=== PATIENT | male | born 1960 | race Caucasian/White ===

== ENCOUNTER 2022-08-22 17:45 | Inpatient (IN) | payer OTHER, BC ==
[~2022-08-22] VITALS: Ht 165.1 cm; Wt 58.1 kg
[~2022-08-22 17:45] MED LIST: KETOROLAC TROMETHAMINE 30 MG VIAL IVP ONE; NS 1000 ML IV.SOLN IV ONE; NS IRRIG SOLN 1000 ML IR ONE; ONDANSETRON HCL 4 MG/2 ML VIAL IVP ONE; SEVOFLURANE 15 MIN GAS INH ONE
[2022-08-22 17:50] VITALS: BP_SYST 104
[2022-08-22] MEDS ORDERED: NACL 0.9% 1,000 ML IV ONE (19:15)
[2022-08-22] MEDS ORDERED: PIPERACILLIN/TAZO 3.375 GM in NS 50 ML IV ONE (19:15)
[2022-08-22] MEDS ORDERED: VANCOMYCIN HCL 1,000 MG in NS 250 ML IV ONE (19:15)
[2022-08-22 19:42] LABS: BASOPHILS # (AUTO) 0.1 K/uL (0.0-0.2); BASOPHILS % (AUTO) 0.5 % (0.0-2.0); EOSINOPHILS # (AUTO) 0.1 K/uL (0.0-0.4); EOSINOPHILS % (AUTO) 0.3 % (0.0-4.0); HEMOGLOBIN 12.5 g/dL (14.0-18.0); LYMPHOCYTES % (AUTO) 9.6 % (20.5-51.5); MEAN CORPUSCULAR HEMOGLOBIN 30 pg (27-31); MEAN CORPUSCULAR HGB CONC 34 % (32-36); MEAN CORPUSCULAR VOLUME 88 fL (79.0-98.0); MONOCYTES # (AUTO) 1.7 K/uL (0.0-1.0); MONOCYTES % (AUTO) 8.3 % (1.7-9.3); NEUTROPHILS # (AUTO) 16.7 K/uL (1.8-7.7); NEUTROPHILS % (AUTO) 81.3 % (40.0-70.0); PLATELET COUNT (AUTO) 385 K/uL (130-430); RED BLOOD CELL COUNT(AUTO) 4.19 MIL/uL (4.2-6.2); RED CELL DISTRIBUTION WIDTH 13.9 % (9.0-15.0); WHITE BLOOD COUNT (AUTO) 20.6 K/uL (4.8-10.8)
[2022-08-22] MEDS ORDERED: VANCOMYCIN HCL 1000 MG/VIAL IV ONE (19:53)
[2022-08-22] MEDS ORDERED: PIPERACILLIN/TAZOBACTAM 3.375 GM/VIAL (ZOSYN) IV ONE ×2 (19:53→22:53)
[2022-08-22 19:59] LABS: CALCIUM 8.9 mg/dL (8.4-11.0); CREATININE 0.78 mg/dL (0.55-1.30)
[2022-08-22] MEDS ORDERED: CLINDAMYCIN 900 MG in D5W 100 ML IV ONE (20:00)
[2022-08-22 20:04] LABS: INR 1.1 (0.80-1.20); PROTHROMBIN TIME 11.9 SECS (9.5-12.5)
[2022-08-22 20:11] LABS: ALBUMIN 3.1 g/dL (3.4-4.8); C-REACTIVE PROTEIN QUANT 17.8 mg/dL (0-0.5); TOTAL BILIRUBIN 0.7 mg/dL (0.0-1.0)
[2022-08-22 20:25] LABS: ERYTHROCYTE SEDIMENTATION RATE 77 MM/HR (0-15)
[2022-08-22] MEDS ORDERED: DIPHENHYDRAMINE HCL 50 MG CAPSULE PO ONE (20:45)
[2022-08-22] MEDS ORDERED: D5/0.45 NS 1,000 ML IV ONE (21:00)
[2022-08-22] MEDS ORDERED: MORPHINE 2 MG/ML INJ. SYRINGE IVP PRN ×2 (21:00)
[2022-08-22 21:21] LABS: BILIRUBIN,URINE NEGATIVE (NEGATIVE); BLOOD, URINE 1+ (NEGATIVE); CLARITY/URINE CLEAR (CLEAR); COLOR,URINE YELLOW (YELLOW); GLUCOSE,URINE NEGATIVE (NEGATIVE); KETONES,URINE NEGATIVE (NEGATIVE); LEUKOCYTE ESTERASE ,URINE NEGATIVE (NEGATIVE); NITRITE, URINE NEGATIVE (NEGATIVE); PROTEIN URINE NEGATIVE (NEGATIVE)
[2022-08-22 21:36] LABS: BACTERIA,URINE FEW /HPF (None Seen); MUCUS,URINE None Seen /LPF (None Seen); WBC,URINE 0-3 /HPF (0-3)
[2022-08-22] MEDS ORDERED: CLINDAMYCIN 600 mg/50mL D5W 50 ML IV ONE (22:53)
[2022-08-22] MEDS ORDERED: CLINDAMYCIN 900 mg/50mL D5W 50 ML IV ONE (23:16)
[2022-08-22 23:33] VITALS: BP_SYST 113
[2022-08-23] VITALS: BP_SYST 115
[2022-08-23] MEDS ORDERED: NACL 0.9% 1,000 ML IV ONE
[2022-08-23] MEDS: PIPERACILLIN/TAZO 3.375 GM in NS 50 ML IV SCH ×3 (05:34→22:19)
[2022-08-23] MEDS: CLINDAMYCIN 600 MG in D5W 50 ML IV SCH ×3 (06:58→17:20)
[2022-08-23 07:28] VITALS: BP_SYST 91
[2022-08-23 11:29] VITALS: BP_SYST 149
[2022-08-23] MEDS: VANCOMYCIN HCL 750 MG in NS 250 ML IV SCH ×2 (12:25→23:43)
[2022-08-23 15:27] VITALS: BP_SYST 94
[2022-08-23] MEDS ORDERED: fentaNYL CITRATE/PF 100 MCG/2 ML AMP IVP PRN (18:30)
[2022-08-23] MEDS ORDERED: ONDANSETRON HCL 4 MG/2 ML VIAL IVP PRN (18:30)
[2022-08-23] MEDS ORDERED: METOCLOPRAMIDE HCL 10 MG/2 ML VIAL IVP PRN (18:30)
[2022-08-23] MEDS ORDERED: BUPIVACAINE /PF 0.5% 30 ML VIAL ONE (19:10)
[2022-08-23] MEDS ORDERED: CLINDAMYCIN PHOSPHATE 600 MG/4 ML VIAL ONE (19:10)
[2022-08-23] MEDS ORDERED: fentaNYL CITRATE/PF 100 MCG/2 ML AMP ONE ×2 (19:10→19:35)
[2022-08-23] MEDS ORDERED: LIDOCAINE/EPI 1% 1:100000 20 ML VIAL ONE (19:10)
[2022-08-23] MEDS ORDERED: LR 1,000 ML IV.SOLN IV ONE (19:10)
[2022-08-23] MEDS ORDERED: PROPOFOL 200MG/ 20ML VIAL (DIPRIVAN) IV ONE (19:10)
[2022-08-23] MEDS ORDERED: SEVOFLURANE 15 MIN GAS INH ONE (19:10)
[2022-08-23] MEDS ORDERED: NS IRRIG SOLN 1000 ML IR ONE (19:10)
[2022-08-23] MEDS: fentaNYL CITRATE/PF 100 MCG/2 ML AMP IVP PRN ×2 (19:42→19:54)
[2022-08-23 21:00] VITALS: BP_SYST 102
[2022-08-23] MEDS: CEFEPIME 1 GM in D5W 50 ML IV SCH (21:26)
[2022-08-23 23:00] VITALS: BP_SYST 100
[2022-08-24] VITALS (7 sets, daily range): BP systolic 91–113
[2022-08-24] MEDS: CLINDAMYCIN 600 MG in D5W 50 ML IV SCH ×4 (01:41→19:03)
[2022-08-24] MEDS: PIPERACILLIN/TAZO 3.375 GM in NS 50 ML IV SCH ×3 (06:29→22:15)
[2022-08-24 07:24] LABS: BASOPHILS # (AUTO) 0.1 K/uL (0.0-0.2); EOSINOPHILS # (AUTO) 0.2 K/uL (0.0-0.4); EOSINOPHILS % (AUTO) 2.2 % (0.0-4.0); HEMATOCRIT 32.8 % (36-54); HEMOGLOBIN 11.3 g/dL (14.0-18.0); LYMPHOCYTES # (AUTO) 1.3 K/uL (1.0-5.5); LYMPHOCYTES % (AUTO) 12.3 % (20.5-51.5); MEAN CORPUSCULAR HEMOGLOBIN 30 pg (27-31); MEAN CORPUSCULAR HGB CONC 34 % (32-36); MEAN CORPUSCULAR VOLUME 88 fL (79.0-98.0); MONOCYTES # (AUTO) 1.3 K/uL (0.0-1.0); MONOCYTES % (AUTO) 12.3 % (1.7-9.3); NEUTROPHILS # (AUTO) 7.5 K/uL (1.8-7.7); NEUTROPHILS % (AUTO) 72.2 % (40.0-70.0); PLATELET COUNT (AUTO) 379 K/uL (130-430); RED BLOOD CELL COUNT(AUTO) 3.72 MIL/uL (4.2-6.2); RED CELL DISTRIBUTION WIDTH 13.9 % (9.0-15.0); WHITE BLOOD COUNT (AUTO) 10.4 K/uL (4.8-10.8)
[2022-08-24] MEDS: CEFEPIME 1 GM in D5W 50 ML IV SCH ×2 (08:06→22:12)
[2022-08-24 08:15] LABS: CALCIUM 7.7 mg/dL (8.4-11.0); CREATININE 0.69 mg/dL (0.55-1.30)
[2022-08-24] MEDS: LACTOBACILLUS RHAMNOSUS GG 1 CAP CAPSULE PO SCH ×2 (08:52→22:12)
[2022-08-24] MEDS: VANCOMYCIN HCL 750 MG in NS 250 ML IV SCH ×2 (11:15→22:16)
[2022-08-25] VITALS: BP_SYST 112
[2022-08-25] MEDS: CLINDAMYCIN 600 MG in D5W 50 ML IV SCH ×5 (00:06→23:51)
[2022-08-25] MEDS: PIPERACILLIN/TAZO 3.375 GM in NS 50 ML IV SCH ×3 (06:32→22:32)
[2022-08-25 08:15] VITALS: BP_SYST 113
[2022-08-25] MEDS: LACTOBACILLUS RHAMNOSUS GG 1 CAP CAPSULE PO SCH ×2 (09:00→22:31)
[2022-08-25] MEDS: CEFEPIME 1 GM in D5W 50 ML IV SCH (09:01)
[2022-08-25] MEDS: VANCOMYCIN HCL 750 MG in NS 250 ML IV SCH (10:58)
[2022-08-25 12:34] VITALS: BP_SYST 125
[2022-08-25 16:00] VITALS: BP_SYST 123
[2022-08-25 20:10] VITALS: BP_SYST 124
[2022-08-25] MEDS: VANCOMYCIN HCL 1,000 MG in NS 250 ML IV SCH (22:32)
[2022-08-25] MEDS: TEMAZEPAM 15 MG CAPSULE PO PRN (22:52)
[2022-08-26] VITALS: BP_SYST 122
[2022-08-26] MEDS: PIPERACILLIN/TAZO 3.375 GM in NS 50 ML IV SCH ×3 (05:34→21:13)
[2022-08-26] MEDS: CLINDAMYCIN 600 MG in D5W 50 ML IV SCH ×3 (05:46→17:15)
[2022-08-26 08:00] VITALS: BP_SYST 101
[2022-08-26] MEDS: LACTOBACILLUS RHAMNOSUS GG 1 CAP CAPSULE PO SCH ×2 (09:42→21:12)
[2022-08-26] MEDS: VANCOMYCIN HCL 1,000 MG in NS 250 ML IV SCH ×2 (11:24→23:35)
[2022-08-26 12:00] VITALS: BP_SYST 108
[2022-08-26 17:00] VITALS: BP_SYST 119
[2022-08-26 20:00] VITALS: BP_SYST 115
[2022-08-26] MEDS: TEMAZEPAM 15 MG CAPSULE PO PRN (21:12)
[2022-08-26] MEDS: ACETAMINOPHEN 325 MG TABLET PO PRN (22:07)
[2022-08-27] VITALS: BP_SYST 110
[2022-08-27] MEDS: CLINDAMYCIN 600 MG in D5W 50 ML IV SCH ×4 (01:48→18:16)
[2022-08-27] MEDS: PIPERACILLIN/TAZO 3.375 GM in NS 50 ML IV SCH ×3 (07:00→21:46)
[2022-08-27 08:00] VITALS: BP_SYST 127
[2022-08-27] MEDS: LACTOBACILLUS RHAMNOSUS GG 1 CAP CAPSULE PO SCH ×2 (09:00→21:46)
[2022-08-27] MEDS ORDERED: METOCLOPRAMIDE HCL 10 MG/2 ML VIAL IVP PRN (09:30)
[2022-08-27] MEDS ORDERED: MEPERIDINE HCL/PF 25 MG/ML DISP.SYRIN IVP PRN (09:30)
[2022-08-27] MEDS ORDERED: HYDROmorphone 1 MG/ML INJ. CARTRIDGE IVP PRN (09:30)
[2022-08-27] MEDS ORDERED: KETOROLAC TROMETHAMINE 30 MG VIAL IVP PRN (09:30)
[2022-08-27] MEDS ORDERED: NALOXONE HCL 0.4 MG/ML AMP (NARCAN) IVP PRN (09:30)
[2022-08-27 12:21] VITALS: BP_SYST 125
[2022-08-27] MEDS: VANCOMYCIN HCL 1,000 MG in NS 250 ML IV SCH ×2 (12:25→22:55)
[2022-08-27 13:22] LABS: BASOPHILS # (AUTO) 0.1 K/uL (0.0-0.2); BASOPHILS % (AUTO) 0.7 % (0.0-2.0); EOSINOPHILS # (AUTO) 0.3 K/uL (0.0-0.4); EOSINOPHILS % (AUTO) 3.7 % (0.0-4.0); HEMATOCRIT 36.1 % (36-54); HEMOGLOBIN 12.2 g/dL (14.0-18.0); LYMPHOCYTES # (AUTO) 1.6 K/uL (1.0-5.5); LYMPHOCYTES % (AUTO) 21.1 % (20.5-51.5); MEAN CORPUSCULAR HEMOGLOBIN 30 pg (27-31); MEAN CORPUSCULAR HGB CONC 34 % (32-36); MEAN CORPUSCULAR VOLUME 89 fL (79.0-98.0); MONOCYTES # (AUTO) 0.6 K/uL (0.0-1.0); MONOCYTES % (AUTO) 8.2 % (1.7-9.3); NEUTROPHILS # (AUTO) 5.2 K/uL (1.8-7.7); NEUTROPHILS % (AUTO) 66.3 % (40.0-70.0); PLATELET COUNT (AUTO) 470 K/uL (130-430); RED BLOOD CELL COUNT(AUTO) 4.07 MIL/uL (4.2-6.2); RED CELL DISTRIBUTION WIDTH 13.8 % (9.0-15.0); WHITE BLOOD COUNT (AUTO) 7.8 K/uL (4.8-10.8)
[2022-08-27 15:34] VITALS: BP_SYST 130
[2022-08-27 20:00] VITALS: BP_SYST 112
[2022-08-27] MEDS: TEMAZEPAM 15 MG CAPSULE PO PRN (21:46)
[2022-08-28] MEDS: CLINDAMYCIN 600 MG in D5W 50 ML IV SCH (00:56)
[2022-08-28 01:58] VITALS: BP_SYST 124
[2022-08-28] MEDS: PIPERACILLIN/TAZO 3.375 GM in NS 50 ML IV SCH ×3 (06:07→20:56)
[2022-08-28 08:00] VITALS: BP_SYST 117
[2022-08-28 08:19] LABS: ALBUMIN 2.5 g/dL (3.4-4.8); CALCIUM 8.5 mg/dL (8.4-11.0); CREATININE 0.87 mg/dL (0.55-1.30); TOTAL BILIRUBIN 0.2 mg/dL (0.0-1.0)
[2022-08-28] MEDS: LACTOBACILLUS RHAMNOSUS GG 1 CAP CAPSULE PO SCH ×2 (09:33→21:02)
[2022-08-28 12:00] VITALS: BP_SYST 102
[2022-08-28 16:00] VITALS: BP_SYST 123
[2022-08-28] MEDS: TEMAZEPAM 15 MG CAPSULE PO PRN (21:01)
[2022-08-29 00:22] VITALS: BP_SYST 114
[2022-08-29] MEDS: PIPERACILLIN/TAZO 3.375 GM in NS 50 ML IV SCH ×3 (05:39→20:51)
[2022-08-29 07:10] LABS: CALCIUM 8.3 mg/dL (8.4-11.0); CREATININE 0.95 mg/dL (0.55-1.30)
[2022-08-29 07:45] LABS: BASOPHILS # (AUTO) 0.1 K/uL (0.0-0.2); BASOPHILS % (AUTO) 0.8 % (0.0-2.0); EOSINOPHILS # (AUTO) 0.4 K/uL (0.0-0.4); EOSINOPHILS % (AUTO) 4.2 % (0.0-4.0); HEMATOCRIT 34.7 % (36-54); LYMPHOCYTES # (AUTO) 1.6 K/uL (1.0-5.5); MEAN CORPUSCULAR HEMOGLOBIN 30 pg (27-31); MEAN CORPUSCULAR HGB CONC 35 % (32-36); MEAN CORPUSCULAR VOLUME 88 fL (79.0-98.0); MONOCYTES # (AUTO) 0.8 K/uL (0.0-1.0); MONOCYTES % (AUTO) 9.5 % (1.7-9.3); NEUTROPHILS # (AUTO) 5.6 K/uL (1.8-7.7); NEUTROPHILS % (AUTO) 66.5 % (40.0-70.0); PLATELET COUNT (AUTO) 479 K/uL (130-430); RED BLOOD CELL COUNT(AUTO) 3.94 MIL/uL (4.2-6.2); RED CELL DISTRIBUTION WIDTH 14.3 % (9.0-15.0); WHITE BLOOD COUNT (AUTO) 8.5 K/uL (4.8-10.8)
[2022-08-29 08:00] VITALS: BP_SYST 115
[2022-08-29] MEDS: LACTOBACILLUS RHAMNOSUS GG 1 CAP CAPSULE PO SCH ×2 (10:56→20:50)
[2022-08-29 11:27] VITALS: BP_SYST 105
[2022-08-29 16:00] VITALS: BP_SYST 110
[2022-08-29 20:05] VITALS: BP_SYST 121
[2022-08-29] MEDS: TEMAZEPAM 15 MG CAPSULE PO PRN (20:51)
[2022-08-30] VITALS: BP_SYST 103
[2022-08-30] MEDS: PIPERACILLIN/TAZO 3.375 GM in NS 50 ML IV SCH ×3 (06:26→20:53)
[2022-08-30] MEDS ORDERED: PROPOFOL 200MG/ 20ML VIAL (DIPRIVAN) IV ONE (07:41)
[2022-08-30] MEDS ORDERED: LR 1,000 ML IV.SOLN IV ONE (07:41)
[2022-08-30] MEDS ORDERED: ONDANSETRON HCL 4 MG/2 ML VIAL IVP ONE (07:41)
[2022-08-30] MEDS ORDERED: fentaNYL CITRATE 250 MCG/5 ML AMP IV ONE (07:41)
[2022-08-30] MEDS ORDERED: SEVOFLURANE 15 MIN GAS INH ONE (07:41)
[2022-08-30] MEDS ORDERED: NS IRRIG SOLN 1000 ML IR ONE (07:41)
[2022-08-30] MEDS ORDERED: KETOROLAC TROMETHAMINE 30 MG VIAL IVP ONE (07:41)
[2022-08-30] MEDS ORDERED: NALOXONE HCL 0.4 MG/ML AMP (NARCAN) IVP PRN ×2 (07:45→10:00)
[2022-08-30] MEDS ORDERED: HYDROmorphone 1 MG/ML INJ. CARTRIDGE IVP PRN (07:45)
[2022-08-30] MEDS: LACTOBACILLUS RHAMNOSUS GG 1 CAP CAPSULE PO SCH ×3 (09:00→20:53)
[2022-08-30 10:26] VITALS: BP_SYST 99
[2022-08-30 13:47] VITALS: BP_SYST 109
[2022-08-30 16:00] VITALS: BP_SYST 107
[2022-08-30 20:00] VITALS: BP_SYST 112
[2022-08-30] MEDS: TEMAZEPAM 15 MG CAPSULE PO PRN (20:53)
[2022-08-31 01:51] VITALS: BP_SYST 153
[2022-08-31] MEDS: PIPERACILLIN/TAZO 3.375 GM in NS 50 ML IV SCH ×3 (05:58→22:06)
[2022-08-31 08:00] VITALS: BP_SYST 122
[2022-08-31 08:32] LABS: CALCIUM 8.5 mg/dL (8.4-11.0); CREATININE 0.85 mg/dL (0.55-1.30)
[2022-08-31 08:34] LABS: BASOPHILS % (AUTO) 0.7 % (0.0-2.0); EOSINOPHILS # (AUTO) 0.3 K/uL (0.0-0.4); EOSINOPHILS % (AUTO) 4.5 % (0.0-4.0); HEMATOCRIT 35.8 % (36-54); HEMOGLOBIN 12.3 g/dL (14.0-18.0); LYMPHOCYTES # (AUTO) 1.4 K/uL (1.0-5.5); LYMPHOCYTES % (AUTO) 19.9 % (20.5-51.5); MEAN CORPUSCULAR HEMOGLOBIN 30 pg (27-31); MEAN CORPUSCULAR HGB CONC 34 % (32-36); MEAN CORPUSCULAR VOLUME 89 fL (79.0-98.0); MONOCYTES # (AUTO) 0.7 K/uL (0.0-1.0); MONOCYTES % (AUTO) 9.6 % (1.7-9.3); NEUTROPHILS # (AUTO) 4.5 K/uL (1.8-7.7); NEUTROPHILS % (AUTO) 65.3 % (40.0-70.0); PLATELET COUNT (AUTO) 510 K/uL (130-430); RED BLOOD CELL COUNT(AUTO) 4.04 MIL/uL (4.2-6.2); RED CELL DISTRIBUTION WIDTH 14.2 % (9.0-15.0); WHITE BLOOD COUNT (AUTO) 6.9 K/uL (4.8-10.8)
[2022-08-31] MEDS: LACTOBACILLUS RHAMNOSUS GG 1 CAP CAPSULE PO SCH ×2 (10:01→22:05)
[2022-08-31 11:49] VITALS: BP_SYST 119
[2022-08-31 17:27] VITALS: BP_SYST 129
[2022-08-31 20:05] VITALS: BP_SYST 120
[2022-08-31] MEDS: TEMAZEPAM 15 MG CAPSULE PO PRN (22:06)
[2022-09-01 00:49] VITALS: BP_SYST 137
[2022-09-01] MEDS: PIPERACILLIN/TAZO 3.375 GM in NS 50 ML IV SCH ×3 (06:57→21:14)
[2022-09-01 08:10] VITALS: BP_SYST 137
[2022-09-01 08:14] VITALS: BP_SYST 118
[2022-09-01] MEDS: LACTOBACILLUS RHAMNOSUS GG 1 CAP CAPSULE PO SCH ×2 (10:02→21:14)
[2022-09-01 11:28] VITALS: BP_SYST 103
[2022-09-01 15:30] VITALS: BP_SYST 110
[2022-09-01 20:00] VITALS: BP_SYST 116
[2022-09-01] MEDS: TEMAZEPAM 15 MG CAPSULE PO PRN (21:14)
[2022-09-02 01:20] VITALS: BP_SYST 119
[2022-09-02] MEDS: PIPERACILLIN/TAZO 3.375 GM in NS 50 ML IV SCH (07:09)
[2022-09-02 08:00] VITALS: BP_SYST 99
[2022-09-02] MEDS: LACTOBACILLUS RHAMNOSUS GG 1 CAP CAPSULE PO SCH ×2 (08:46→21:12)
[2022-09-02 12:00] VITALS: BP_SYST 108
[2022-09-02 16:00] VITALS: BP_SYST 119
[2022-09-02 20:05] VITALS: BP_SYST 126
[2022-09-02] MEDS: TEMAZEPAM 15 MG CAPSULE PO PRN (21:13)
[2022-09-03 08:00] VITALS: BP_SYST 130
[2022-09-03] MEDS ORDERED: CEFEPIME 2 GM in D5W 100 ML IV SCH (09:00)
[2022-09-03] MEDS: LACTOBACILLUS RHAMNOSUS GG 1 CAP CAPSULE PO SCH ×2 (09:06→21:14)
[2022-09-03 11:28] VITALS: BP_SYST 124
[2022-09-03 13:47] LABS: PROTHROMBIN TIME 10.4 SECS (9.5-12.5)
[2022-09-03 15:35] VITALS: BP_SYST 116
[2022-09-03 20:00] VITALS: BP_SYST 129
[2022-09-03] MEDS: TEMAZEPAM 15 MG CAPSULE PO PRN (21:14)
[2022-09-04 08:20] LABS: BASOPHILS # (AUTO) 0.1 K/uL (0.0-0.2); BASOPHILS % (AUTO) 0.9 % (0.0-2.0); EOSINOPHILS # (AUTO) 0.5 K/uL (0.0-0.4); EOSINOPHILS % (AUTO) 5.3 % (0.0-4.0); HEMATOCRIT 35.9 % (36-54); HEMOGLOBIN 12.1 g/dL (14.0-18.0); LYMPHOCYTES # (AUTO) 1.3 K/uL (1.0-5.5); MEAN CORPUSCULAR HEMOGLOBIN 30 pg (27-31); MEAN CORPUSCULAR HGB CONC 34 % (32-36); MEAN CORPUSCULAR VOLUME 89 fL (79.0-98.0); MONOCYTES # (AUTO) 0.9 K/uL (0.0-1.0); MONOCYTES % (AUTO) 9.1 % (1.7-9.3); NEUTROPHILS # (AUTO) 7.1 K/uL (1.8-7.7); NEUTROPHILS % (AUTO) 71.7 % (40.0-70.0); PLATELET COUNT (AUTO) 451 K/uL (130-430); RED BLOOD CELL COUNT(AUTO) 4.03 MIL/uL (4.2-6.2); RED CELL DISTRIBUTION WIDTH 14.7 % (9.0-15.0); WHITE BLOOD COUNT (AUTO) 9.9 K/uL (4.8-10.8)
[2022-09-04] MEDS: LACTOBACILLUS RHAMNOSUS GG 1 CAP CAPSULE PO SCH ×2 (08:46→20:25)
[2022-09-04 08:54] LABS: CALCIUM 9.4 mg/dL (8.4-11.0); CREATININE 0.77 mg/dL (0.55-1.30)
[2022-09-04] MEDS: levoFLOXacin 500 MG TABLET PO SCH (09:33)
[2022-09-04 10:29] VITALS: BP_SYST 102
[2022-09-04 11:28] VITALS: BP_SYST 119
[2022-09-04 15:30] VITALS: BP_SYST 112
[2022-09-04 20:00] VITALS: BP_SYST 118
[2022-09-04] MEDS: TEMAZEPAM 15 MG CAPSULE PO SCH (20:25)
[2022-09-05] VITALS: BP_SYST 114
[2022-09-05 00:48] VITALS: BP_SYST 153
[2022-09-05 08:00] VITALS: BP_SYST 133
[2022-09-05] MEDS: levoFLOXacin 500 MG TABLET PO SCH (10:03)
[2022-09-05] MEDS: LACTOBACILLUS RHAMNOSUS GG 1 CAP CAPSULE PO SCH ×2 (10:04→20:08)
[2022-09-05 11:40] VITALS: BP_SYST 140
[2022-09-05 15:25] VITALS: BP_SYST 125
[2022-09-05 20:00] VITALS: BP_SYST 133
[2022-09-05] MEDS: TEMAZEPAM 15 MG CAPSULE PO SCH (20:08)
[2022-09-06 01:12] VITALS: BP_SYST 127
[2022-09-06 08:00] VITALS: BP_SYST 101
[2022-09-06] MEDS: LACTOBACILLUS RHAMNOSUS GG 1 CAP CAPSULE PO SCH ×2 (10:08→20:00)
[2022-09-06] MEDS: levoFLOXacin 500 MG TABLET PO SCH (10:08)
[2022-09-06 11:27] VITALS: BP_SYST 101
[2022-09-06 15:28] VITALS: BP_SYST 101
[2022-09-06 20:00] VITALS: BP_SYST 123
[2022-09-06] MEDS: TEMAZEPAM 15 MG CAPSULE PO SCH (20:00)
[2022-09-07 04:00] VITALS: BP_SYST 128
[2022-09-07 07:30] VITALS: BP_SYST 105
[2022-09-07 08:29] VITALS: BP_SYST 105
[2022-09-07] MEDS: levoFLOXacin 500 MG TABLET PO SCH (09:23)
[2022-09-07] MEDS: LACTOBACILLUS RHAMNOSUS GG 1 CAP CAPSULE PO SCH ×2 (09:23→20:27)
[2022-09-07 11:36] VITALS: BP_SYST 129
[2022-09-07 16:48] VITALS: BP_SYST 118
[2022-09-07 20:00] VITALS: BP_SYST 129
[2022-09-07] MEDS: TEMAZEPAM 15 MG CAPSULE PO SCH (20:27)
[2022-09-08 00:24] VITALS: BP_SYST 116
[2022-09-08 08:00] VITALS: BP_SYST 124
[2022-09-08] MEDS: LACTOBACILLUS RHAMNOSUS GG 1 CAP CAPSULE PO SCH ×2 (10:29→20:44)
[2022-09-08] MEDS: levoFLOXacin 500 MG TABLET PO SCH (10:30)
[2022-09-08 12:00] VITALS: BP_SYST 110
[2022-09-08 19:30] VITALS: BP_SYST 132
[2022-09-08] MEDS: TEMAZEPAM 15 MG CAPSULE PO SCH (20:44)
[2022-09-09] VITALS: BP_SYST 124
[2022-09-09 08:11] VITALS: BP_SYST 140
[2022-09-09] MEDS: levoFLOXacin 500 MG TABLET PO SCH (10:20)
[2022-09-09] MEDS: LACTOBACILLUS RHAMNOSUS GG 1 CAP CAPSULE PO SCH ×2 (10:20→21:33)
[2022-09-09 13:08] VITALS: BP_SYST 121
[2022-09-09 18:05] VITALS: BP_SYST 98
[2022-09-09 20:00] VITALS: BP_SYST 130
[2022-09-09] MEDS: TEMAZEPAM 15 MG CAPSULE PO SCH (21:34)
[2022-09-10 06:00] VITALS: BP_SYST 108
[2022-09-10 09:19] VITALS: BP_SYST 128
[2022-09-10] MEDS: LACTOBACILLUS RHAMNOSUS GG 1 CAP CAPSULE PO SCH ×2 (09:21→20:42)
[2022-09-10] MEDS: levoFLOXacin 500 MG TABLET PO SCH (10:09)
[2022-09-10 12:00] VITALS: BP_SYST 117
[2022-09-10 17:07] VITALS: BP_SYST 116
[2022-09-10 20:00] VITALS: BP_SYST 115
[2022-09-10] MEDS: TEMAZEPAM 15 MG CAPSULE PO SCH (20:42)
[2022-09-11 00:20] VITALS: BP_SYST 116
[2022-09-11 07:55] VITALS: BP_SYST 130
[2022-09-11] MEDS: LACTOBACILLUS RHAMNOSUS GG 1 CAP CAPSULE PO SCH ×2 (08:15→20:59)
[2022-09-11 11:39] VITALS: BP_SYST 117
[2022-09-11 15:43] VITALS: BP_SYST 123
[2022-09-11 20:00] VITALS: BP_SYST 124
[2022-09-11] MEDS: TEMAZEPAM 15 MG CAPSULE PO SCH (20:59)
[2022-09-12 00:05] VITALS: BP_SYST 121
[2022-09-12 07:49] VITALS: BP_SYST 117
[2022-09-12] MEDS: LACTOBACILLUS RHAMNOSUS GG 1 CAP CAPSULE PO SCH ×2 (08:44→20:09)
[2022-09-12] MEDS: levoFLOXacin 500 MG TABLET PO SCH (11:15)
[2022-09-12 12:00] VITALS: BP_SYST 121
[2022-09-12 16:00] VITALS: BP_SYST 116
[2022-09-12 20:00] VITALS: BP_SYST 126
[2022-09-12] MEDS: TEMAZEPAM 15 MG CAPSULE PO SCH (20:09)
[2022-09-13 01:23] VITALS: BP_SYST 117
[2022-09-13 07:20] VITALS: BP_SYST 143
[2022-09-13] MEDS: levoFLOXacin 500 MG TABLET PO SCH (09:09)
[2022-09-13] MEDS: LACTOBACILLUS RHAMNOSUS GG 1 CAP CAPSULE PO SCH ×2 (09:09→20:02)
[2022-09-13 11:29] VITALS: BP_SYST 116
[2022-09-13 15:54] VITALS: BP_SYST 124
[2022-09-13 20:00] VITALS: BP_SYST 119
[2022-09-13] MEDS: TEMAZEPAM 15 MG CAPSULE PO SCH (20:02)
[2022-09-14] VITALS: BP_SYST 122
[2022-09-14] MEDS: LACTOBACILLUS RHAMNOSUS GG 1 CAP CAPSULE PO SCH ×2 (08:42→21:43)
[2022-09-14] MEDS: levoFLOXacin 500 MG TABLET PO SCH (10:42)
[2022-09-14] MEDS: ACETAMINOPHEN 325 MG TABLET PO PRN (10:44)
[2022-09-14 11:34] VITALS: BP_SYST 129
[2022-09-14 15:24] VITALS: BP_SYST 116
[2022-09-14 20:00] VITALS: BP_SYST 111
[2022-09-14] MEDS ORDERED: TEMAZEPAM 15 MG CAPSULE PO ONE (23:30)
[2022-09-15] VITALS: BP_SYST 122
[2022-09-15 08:00] VITALS: BP_SYST 113
[2022-09-15] MEDS: levoFLOXacin 500 MG TABLET PO SCH (09:32)
[2022-09-15] MEDS: LACTOBACILLUS RHAMNOSUS GG 1 CAP CAPSULE PO SCH ×2 (09:32→21:34)
[2022-09-15 09:58] VITALS: BP_SYST 122
[2022-09-15 12:03] VITALS: BP_SYST 120
[2022-09-15 16:15] VITALS: BP_SYST 123
[2022-09-15 20:00] VITALS: BP_SYST 109
[2022-09-15] MEDS: TEMAZEPAM 15 MG CAPSULE PO SCH (21:34)
[2022-09-16 00:10] VITALS: BP_SYST 108
[2022-09-16 08:00] VITALS: BP_SYST 106
[2022-09-16] MEDS: levoFLOXacin 500 MG TABLET PO SCH (09:37)
[2022-09-16] MEDS: LACTOBACILLUS RHAMNOSUS GG 1 CAP CAPSULE PO SCH ×2 (09:37→20:40)
[2022-09-16 11:23] VITALS: BP_SYST 108
[2022-09-16 12:00] VITALS: BP_SYST 108
[2022-09-16 16:00] VITALS: BP_SYST 96
[2022-09-16 20:00] VITALS: BP_SYST 107
[2022-09-16] MEDS: TEMAZEPAM 15 MG CAPSULE PO SCH (20:40)
[2022-09-17 00:20] VITALS: BP_SYST 125
[2022-09-17 10:08] VITALS: BP_SYST 125
[2022-09-17] MEDS: levoFLOXacin 500 MG TABLET PO SCH (10:10)
[2022-09-17] MEDS: LACTOBACILLUS RHAMNOSUS GG 1 CAP CAPSULE PO SCH ×2 (10:10→21:21)
[2022-09-17 14:17] VITALS: BP_SYST 124
[2022-09-17 17:56] VITALS: BP_SYST 128
[2022-09-17 20:00] VITALS: BP_SYST 118
[2022-09-17] MEDS: TEMAZEPAM 15 MG CAPSULE PO SCH (21:20)
[2022-09-18 04:00] VITALS: BP_SYST 120
[2022-09-18 09:00] VITALS: BP_SYST 98
[2022-09-18 09:15] VITALS: BP_SYST 98
[2022-09-18] MEDS: LACTOBACILLUS RHAMNOSUS GG 1 CAP CAPSULE PO SCH ×2 (09:49→21:02)
[2022-09-18] MEDS ORDERED: levoFLOXacin 500 MG TABLET PO SCH (10:00)
[2022-09-18 13:00] VITALS: BP_SYST 125
[2022-09-18 16:15] VITALS: BP_SYST 118
[2022-09-18 19:30] VITALS: BP_SYST 106
[2022-09-18] MEDS: TEMAZEPAM 15 MG CAPSULE PO SCH (21:02)
[2022-09-19 02:16] VITALS: BP_SYST 114
[2022-09-19 08:06] VITALS: BP_SYST 118
[2022-09-19] MEDS: LACTOBACILLUS RHAMNOSUS GG 1 CAP CAPSULE PO SCH ×2 (09:58→21:06)
[2022-09-19 11:35] VITALS: BP_SYST 130
[2022-09-19 15:25] VITALS: BP_SYST 104
[2022-09-19 19:35] VITALS: BP_SYST 114
[2022-09-19] MEDS: TEMAZEPAM 15 MG CAPSULE PO SCH (21:07)
[2022-09-20] VITALS (9 sets, daily range): BP systolic 110–172
[2022-09-20 04:35] LABS: BASOPHILS # (AUTO) 0.1 K/uL (0.0-0.2); EOSINOPHILS # (AUTO) 0.6 K/uL (0.0-0.4); EOSINOPHILS % (AUTO) 8.8 % (0.0-4.0); HEMATOCRIT 34.8 % (36-54); HEMOGLOBIN 11.7 g/dL (14.0-18.0); LYMPHOCYTES # (AUTO) 1.4 K/uL (1.0-5.5); LYMPHOCYTES % (AUTO) 20.2 % (20.5-51.5); MEAN CORPUSCULAR HEMOGLOBIN 29 pg (27-31); MEAN CORPUSCULAR HGB CONC 34 % (32-36); MEAN CORPUSCULAR VOLUME 87 fL (79.0-98.0); MONOCYTES # (AUTO) 0.8 K/uL (0.0-1.0); NEUTROPHILS # (AUTO) 3.9 K/uL (1.8-7.7); PLATELET COUNT (AUTO) 268 K/uL (130-430); RED BLOOD CELL COUNT(AUTO) 3.99 MIL/uL (4.2-6.2); RED CELL DISTRIBUTION WIDTH 14.8 % (9.0-15.0); WHITE BLOOD COUNT (AUTO) 6.8 K/uL (4.8-10.8)
[2022-09-20 04:52] LABS: INR 1.1 (0.80-1.20); PROTHROMBIN TIME 10.9 SECS (9.5-12.5)
[2022-09-20 05:00] LABS: ALBUMIN 3.2 g/dL (3.4-4.8); CREATININE 0.76 mg/dL (0.55-1.30); TOTAL BILIRUBIN 0.3 mg/dL (0.0-1.0)
[2022-09-20] MEDS ORDERED: BUPIVACAINE /EPINEPHRINE/PF 0.5% 30 ML VIAL INJ ONE (08:24)
[2022-09-20] MEDS ORDERED: EPINEPHRINE HCL/PF 1 MG/ML AMP IV ONE (08:24)
[2022-09-20] MEDS ORDERED: MINERAL OIL 30 ML UDC PO ONE (08:24)
[2022-09-20] MEDS ORDERED: ePHEDrine sulfate 50 MG/ML VIAL IVP ONE (08:24)
[2022-09-20] MEDS ORDERED: DEXAMETHASONE SOD PHOSPHATE 4 MG/ML VIAL IVP ONE (08:24)
[2022-09-20] MEDS ORDERED: LR 1,000 ML IV.SOLN IV ONE (08:24)
[2022-09-20] MEDS ORDERED: ONDANSETRON HCL 4 MG/2 ML VIAL IVP ONE (08:24)
[2022-09-20] MEDS ORDERED: METOCLOPRAMIDE HCL 10 MG/2 ML VIAL IVP ONE (08:24)
[2022-09-20] MEDS ORDERED: CEFAZOLIN 2 GM IVPB PREMIX 50 ML IV ONE (08:24)
[2022-09-20] MEDS ORDERED: HYDROmorphone 2 MG/ML VIAL IVP ONE (08:24)
[2022-09-20] MEDS ORDERED: SEVOFLURANE 15 MIN GAS INH ONE (08:24)
[2022-09-20] MEDS ORDERED: MIDAZOLAM HCL 5 MG/5 ML VIAL IVP ONE (08:24)
[2022-09-20] MEDS ORDERED: NS IRRIG SOLN 1000 ML IR ONE (08:24)
[2022-09-20] MEDS: LACTOBACILLUS RHAMNOSUS GG 1 CAP CAPSULE PO SCH ×2 (09:00→20:58)
[2022-09-20] MEDS ORDERED: HYDROmorphone 1 MG/ML INJ. CARTRIDGE IVP PRN ×2 (10:45)
[2022-09-20] MEDS ORDERED: NALOXONE HCL 0.4 MG/ML AMP (NARCAN) IVP PRN ×2 (10:45)
[2022-09-20] MEDS ORDERED: METOCLOPRAMIDE HCL 10 MG/2 ML VIAL IVP PRN (10:45)
[2022-09-20] MEDS ORDERED: KETOROLAC TROMETHAMINE 30 MG VIAL IVP PRN (10:45)
[2022-09-20] MEDS ORDERED: ONDANSETRON HCL 4 MG/2 ML VIAL IVP PRN (10:45)
[2022-09-20] MEDS: TEMAZEPAM 15 MG CAPSULE PO SCH (20:58)
[2022-09-21 00:12] VITALS: BP_SYST 123
[2022-09-21 08:21] VITALS: BP_SYST 118
[2022-09-21] MEDS: LACTOBACILLUS RHAMNOSUS GG 1 CAP CAPSULE PO SCH ×2 (09:57→22:35)
[2022-09-21 21:00] VITALS: BP_SYST 135
[2022-09-21] MEDS: TEMAZEPAM 15 MG CAPSULE PO SCH (22:35)
[2022-09-21 23:57] VITALS: BP_SYST 137
[2022-09-22 08:00] VITALS: BP_SYST 119
[2022-09-22] MEDS: LACTOBACILLUS RHAMNOSUS GG 1 CAP CAPSULE PO SCH ×2 (08:38→20:24)
[2022-09-22] MEDS: ACETAMINOPHEN 325 MG TABLET PO PRN (16:07)
[2022-09-22 20:00] VITALS: BP_SYST 120
[2022-09-22] MEDS: TEMAZEPAM 15 MG CAPSULE PO SCH (21:00)
[2022-09-23 08:00] VITALS: BP_SYST 158
[2022-09-23] MEDS: LACTOBACILLUS RHAMNOSUS GG 1 CAP CAPSULE PO SCH ×2 (09:42→21:45)
[2022-09-23 12:00] VITALS: BP_SYST 132
[2022-09-23 16:00] VITALS: BP_SYST 122
[2022-09-23] MEDS: ACETAMINOPHEN 325 MG TABLET PO PRN ×2 (17:25→21:46)
[2022-09-23 20:00] VITALS: BP_SYST 133
[2022-09-23] MEDS: TEMAZEPAM 15 MG CAPSULE PO SCH (21:45)
[2022-09-24 00:15] VITALS: BP_SYST 123
[2022-09-24 08:00] VITALS: BP_SYST 139
[2022-09-24 09:18] LABS: BASOPHILS # (AUTO) 0.1 K/uL (0.0-0.2); BASOPHILS % (AUTO) 0.9 % (0.0-2.0); EOSINOPHILS # (AUTO) 0.6 K/uL (0.0-0.4); HEMATOCRIT 39.4 % (36-54); HEMOGLOBIN 13.1 g/dL (14.0-18.0); LYMPHOCYTES # (AUTO) 1.2 K/uL (1.0-5.5); LYMPHOCYTES % (AUTO) 17.3 % (20.5-51.5); MEAN CORPUSCULAR HEMOGLOBIN 29 pg (27-31); MEAN CORPUSCULAR HGB CONC 33 % (32-36); MEAN CORPUSCULAR VOLUME 88 fL (79.0-98.0); MONOCYTES # (AUTO) 0.7 K/uL (0.0-1.0); MONOCYTES % (AUTO) 9.4 % (1.7-9.3); NEUTROPHILS # (AUTO) 4.6 K/uL (1.8-7.7); NEUTROPHILS % (AUTO) 64.4 % (40.0-70.0); PLATELET COUNT (AUTO) 321 K/uL (130-430); RED BLOOD CELL COUNT(AUTO) 4.49 MIL/uL (4.2-6.2); RED CELL DISTRIBUTION WIDTH 14.9 % (9.0-15.0); WHITE BLOOD COUNT (AUTO) 7.2 K/uL (4.8-10.8)
[2022-09-24 09:48] LABS: CREATININE 0.86 mg/dL (0.55-1.30)
[2022-09-24 10:16] VITALS: BP_SYST 123
[2022-09-24] MEDS: LACTOBACILLUS RHAMNOSUS GG 1 CAP CAPSULE PO SCH (11:33)
[2022-09-24 12:00] VITALS: BP_SYST 128
[2022-09-24 15:24] VITALS: BP_SYST 128
== END 2022-09-24 16:50 | disposition home or self-care (01) | DRG 854 ==
LOC: SED 17:45 → SMU 20:55
PROVIDERS: ADMIT Internal Medicine; ATTEND Internal Medicine
PROC: 0LB80ZZ Excision of Left Hand Tendon, Open Approach (ICD-10-PCS; principal; 2022-08-23 16:30)
PROC: 0LB80ZZ Excision of Left Hand Tendon, Open Approach (ICD-10-PCS; 2022-08-27)
PROC: 0LB80ZZ Excision of Left Hand Tendon, Open Approach (ICD-10-PCS; 2022-08-30)
PROC: 0HRGXK3 Replacement of Left Hand Skin with Nonautologous Tissue Substitute, Full Thickness, External Approach (ICD-10-PCS; 2022-08-30)
PROC: 0LB80ZZ Excision of Left Hand Tendon, Open Approach (ICD-10-PCS; 2022-09-20)
PROC: 0HRGX74 Replacement of Left Hand Skin with Autologous Tissue Substitute, Partial Thickness, External Approach (ICD-10-PCS; 2022-09-20)
PROC: 02HV33Z Insertion of Infusion Device into Superior Vena Cava, Percutaneous Approach (ICD-10-PCS; 2022-09-20)
DX: A41.9 Sepsis, unspecified organism (principal); E44.0 Moderate protein-calorie malnutrition; L03.114 Cellulitis of left upper limb; L03.113 Cellulitis of right upper limb; W57.XXXA Bitten or stung by nonvenomous insect and other nonvenomous arthropods, initial encounter; M77.8 Other enthesopathies, not elsewhere classified; Z20.822 Contact with and (suspected) exposure to COVID-19; Z68.21 Body mass index [BMI] 21.0-21.9, adult; Y92.89 Other specified places as the place of occurrence of the external cause; Y93.89 Activity, other specified; Y99.8 Other external cause status
CPT/HCPCS: 36415; 71045; 73201-TC; 76376; 80048; 80053; 80202; 81000; 83605; 83615; 85025; 85610-TC; 85651-TC; 85730-TC; 86140; 86886; 86900; 86901; 87040; 87070-TC; 87075-TC; 87081; 87086; 87186-TC; 87205-TC; 88304; 93005; 94010; 94760; 96361; 96365; 96367; 99291; A6550; C9363; J0171; J0690; J0692; J0696; J1100; J1170; J1885; J2250; J2270; J2405; J2543; J2704; J2765; J3010; J3370; J3490; J7030; J7050; J7060; J7120; Q0163; Q4118; Q9967